=== PATIENT | male | born 1960 | race Caucasian/White ===

== ENCOUNTER 2020-11-28 14:44 | Emergency (ER) | payer MEDICARE, OTHER ==
--- NOTE | 2020-11-28 15:09 | EDM.PDOC ---
ED HPI GENERAL MEDICAL PROBLEM - General Chief Complaint: Neuro Symptoms/Deficits Stated Complaint: CONFUSION Time Seen by Provider: 11/28/20 15:00 Source of Information: Reports: Patient History Limitations: Reports: No Limitations - History of Present Illness INITIAL COMMENTS - FREE TEXT/NARRATIVE: 59-year-old male presents to the ED complaining of confusion and weakness parti cular of his left side. 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 His presentation was that of being confused not able to identify where he gets his prescriptions what prescriptions he is on etc. He states for the last week or more he is appreciated that if he bends over to tie his shoes he lifts towards the left side but he has not yet fallen. He does have intermittent problems with headaches. No nausea or vomiting. No recent closed head injuries. He denies alcohol use. The only medication that is new to him is Metformin which is started 500 mg twice daily about a month ago and he is not checking blood sugars at home. Therefore we do cannot identify what medications he takes per se as he gets them through the mail. Patient was seen as a stroke alert patient through the ED. He was sent to the CT suite by nursing staff. CT head reveals an old infarct within the left periventricular white matter. This causes mild ex vacuo oral enlargement of the left lateral ventricle. Ventricles along with the basal cisterns and sulci over the convexities are also mildly dilated. No other abnormal parenchymal densities are seen. No evidence of intracranial hemorrhage is seen. No midline shift or mass-effect identified. Bone window settings were reviewed. Visualized mastoid sinuses and paranasal sinuses show nothing acute. No acute calvarial finding is appreciated. Of note patient quit smoking after his first CVA 7 years ago but has been smoking again for the last 7 months. Took a while to get this out of him but he is experiencing some dysuria urgency and frequency that started last evening. Onset: Unknown/Unsure (Sounds like left-sided weakness and feeling off balance has been going on for at least a month but seems to be progressively getting worse.) Duration: Week(s):, Getting Worse Location: Reports: Generalized (Seems to be experiencing left-sided weakness listing to the left side at times and feels off balance.) Quality: Reports: Other (Feeling confused and disoriented at times.) Severity: Moderate Improves with: Reports: None Worsens with: Reports: None Context: Denies: Activity, Exercise, Lifting, Sick Contact, Other Associated Symptoms: Reports: Confusion, Cough, cough w sputum (Gross cough.), Headaches, Malaise, Shortness of Breath, Weakness. 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: Other (see below) (Treatment plan about a month ago only new medication is Metformin 500 mg twice daily introduced to his) Headache Pain Score (Numeric/FACES): 3 - Related Data Allergies Allergy/AdvReac Type Severity Reaction Status Date / Time No Known Allergies Allergy Verified 11/28/20 14:57 Home Meds: Home Meds levoFLOXacin [Levaquin] 500 mg PO DAILY #14 tab 11/28/20 [Rx] Past Medical History Cardiovascular History: Reports: Hypertension Gastrointestinal History: Reports: GERD Neurological History: Reports: CVA (Affecting the right side of his body with some expressive aphasia for which he is recovered from very well. He still has some residual right-sided weakness and off balance symptoms at times) Endocrine/Metabolic History: Reports: Diabetes, Type II Social & Family History - Tobacco Use Tobacco Use Status *Q: Current Every Day Tobacco User Years of Tobacco use: 30 Packs/Tins Daily: 0.5 - Recreational Drug Use Recreational Drug Use: No - Living Situation & Occupation Living situation: Reports: Single, with Family Occupation: Unemployed (Apparently lives with his mother.) ED ROS GENERAL - Review of Systems Review Of Systems: See Below Reason Not Obtained: Difficult to obtain review of systems as the patient cannot remem Constitutional: Reports: Malaise, Weakness, Fatigue, Decreased Appetite. Denies: Fever, Chills, Weight Loss HEENT: Reports: Glasses. Denies: Contact Lenses, Dental Pain, Ear Discharge, Ear Pain, Eye Discharge, Eye Pain, Hearing Loss, Nosebleed, Nose Pain, Rhinitis, Sinus Problem, Throat Pain, Throat Swelling, Vertigo Respiratory: Reports: Shortness of Breath, Wheezing, Cough, Sputum ([place] cough in the mornings.). Denies: Pleuritic Chest Pain, Hemoptysis Cardiovascular: Reports: Blood Pressure Problem, Dyspnea on Exertion. Denies: Chest Pain ( Sputum intermittently.), Claudication, Edema, Lightheadedness, Orthopnea, Palpitations Endocrine: Reports: Fatigue GI/Abdominal: Reports: No Symptoms : Reports: Dysuria (Started last evening.), Frequency, Urgency, Other Musculoskeletal: Reports: Joint Pain (Lv x2.) Skin: Reports: No Symptoms ( Knees hips low back and neck at times) Neurological: Reports: Confusion, Headache, Difficulty Walking, Weakness. De nies: Dizziness, Numbness, Paresthesia, Pre-Existing Deficit (Seems to list to the left side intermittently.), Syncope, Tingling, Tremors, Trouble Speaking, Change in Speech Psychiatric: Reports: Anxiety Hematologic/Lymphatic: Reports: No Symptoms Immunologic: Reports: No Symptoms ED EXAM, NEURO - Physical Exam Exam: See Below Exam Limited By: No Limitations General Appearance: Alert, WD/WN, Anxious, Mild Distress, Other (Temperature is 36.4 degrees. Face feels a little warmer than that. Heart rate 106 and sinus respiratory is 26 with O2 sats of 98% room air. He is mildly hyperventilating. BP is 142/81.) Eye Exam: Bilateral Eye: Normal Inspection (No scleral icterus or blepharal pallor.), PERRL Ears: Normal TMs Throat/Mouth: Normal Inspection, Normal Lips, Normal Teeth, Normal Oropharynx, Other (Tongue is mildly dry.) Head Exam: Atraumatic, Normocephalic, Other Neck: Normal Inspection, Supple (No outward signs of any head or facial trauma.), Non-Tender, Full Range of Motion. No: Carotid Bruit, Lymphadenopathy (L), Lymphadenopathy (R) Respiratory/Chest: No Respiratory Distress, Lungs Clear, No Accessory Muscle Use, Wheezing Cardiovascular: Normal Peripheral Pulses, Regular Rate, Rhythm, No Edema, No Gallop, No Murmur, No Rub GI/Abdominal: Normal Bowel Sounds, Soft, Non-Tender, No Organomegaly, No Mass, Pelvis Stable Neurological: Alert, Normal Mood/Affect, Normal Dorsiflexion, CN II-XII Intact, Normal Plantar Flexion, Oriented x 3. No: Normal Gait, Normal Reflexes DTR: 0: Achilles (R), Achilles (L), 1+: Bicep (R), Patella (R), Patella (L), 2+: Bicep (L) Back Exam: Normal Inspection, Full Range of Motion. No: CVA Tenderness (L), CVA Tenderness (R) Extremities: Normal Inspection, Normal Range of Motion, Non-Tender, No Pedal Edema Psychiatric: Normal Affect, Normal Mood Skin Exam: Dry, Intact, Normal Color, No Rash #1 Interpretation EKG Date: 11/28/20 Time: 14:58 Rhythm: NSR Rate (Beats/Min): 98 [place]: Normal P-Wave: Present QRS: Other (RSR prime wave in V2 consider normal variant) ST-T: Normal QT: Normal EKG Interpretation Comments: Essentially normal ECG Course - Vital Signs Last Recorded V/S: Last Vital Signs Temp 36.4 C 11/28/20 14:50 Pulse 95 11/28/20 19:00 Resp 16 11/28/20 19:00 BP 133/70 11/28/20 19:00 Pulse Ox 98 11/28/20 19:00 - Orders/Labs/Meds Labs: Laboratory Tests 11/28/20 11/28/20 11/28/20 Range/Units 14:53 14:57 14:57 WBC 14.05 H (4.23-9.07) K/mm3 RBC 5.44 (4.63-6.08) M/mm3 Hgb 16.0 (13.7-17.5) gm/dl Hct 47.8 (40.1-51.0) % MCV 87.9 (79.0-92.2) fl MCH 29.4 (25.7-32.2) pg MCHC 33.5 (32.2-35.5) g/dl RDW Std Deviation 43.5 (35.1-43.9) fL Plt Count 215 (163-337) K/mm3 MPV 10.2 (9.4-12.3) fl Neut % (Auto) 74.9 H (34.0-67.9) % Lymph % (Auto) 14.7 L (21.8-53.1) % [place] % (Auto) 8.1 (5.3-12.2) % Eos % (Auto) 1.6 (0.8-7.0) Baso % (Auto) 0.5 (0.1-1.2) % Neut # (Auto) 10.52 H (1.78-5.38) K/mm3 Lymph # (Auto) 2.07 (1.32-3.57) K/mm3 [place] # (Auto) 1.14 H (0.30-0.82) K/mm3 Eos # (Auto) 0.22 (0.04-0.54) K/mm3 Baso # (Auto) 0.07 (0.01-0.08) K/mm3 Manual Slide Review Normal smear PT (9.7-12.0) SECONDS INR APTT (21.7-31.4) SECONDS Sodium 137 (136-145) mEq/L Potassium 3.7 (3.5-5.1) mEq/L Chloride 100 (98-107) mEq/L Carbon Dioxide 28 (21-32) mEq/L Anion Gap 12.7 (5-15) BUN 8 (7-18) mg/dL Creatinine 1.3 (0.7-1.3) mg/dL Est Cr Clr Drug Dosing 67.98 mL/min Estimated GFR (MDRD) 57 (>60) mL/min BUN/Creatinine Ratio 6.2 L (14-18) Glucose 209 H (74-106) mg/dL POC Glucose 211 H (70-105) mg/dL Hemoglobin A1c ( - 5.6) % Serum Osmolality 288 (280-300) mosm/kg Lactic Acid (0.4-2.0) mmol/L Calcium 8.7 (8.5-10.1) mg/dL Magnesium 1.6 L (1.8-2.4) mg/dl Total Bilirubin 0.4 (0.2-1.0) mg/dL AST 19 (15-37) U/L ALT 43 (16-63) U/L Alkaline Phosphatase 94 (46-116) U/L Troponin I < 0.017 (0.00-0.056) ng/mL C-Reactive Protein 1.1 H* (<1.0) mg/dL NT-Pro-B Natriuret Pep (0-125) pg/mL Total Protein 7.6 (6.4-8.2) g/dl Albumin 3.8 (3.4-5.0) g/dl Globulin 3.8 gm/dL Albumin/Globulin Ratio 1.0 (1-2) Urine Color (Yellow) Urine Appearance (Clear) Urine pH (5.0-8.0) Ur Specific [place] (1.005-1.030) Urine Protein (Negative) Urine Glucose (UA) (Negative) Urine Ketones (Negative) Urine Occult Blood (Negative) Urine Nitrite (Negative) Urine Bilirubin (Negative) Urine Urobilinogen (0.2-1.0) Ur Leukocyte Esterase (Negative) Urine RBC (0-5) /hpf Urine WBC (0-5) /hpf Ur Squamous Epith Cells (0-5) /hpf Urine Bacteria (FEW) /hpf Urine Mucus (FEW) /hpf Urine Opiates Screen (PCXGFJ=814) Ur Buprenorphine Scrn (CUTOFF=10) Ur Oxycodone Screen (CSB1DH=904) Urine Methadone Screen (TAD1VM=344) Ur Propoxyphene Screen (WGNHWG=642) Ur Barbiturates Screen (SBKRWL=035) Ur Tricyclics Screen (GNPPTD=052) Ur Phencyclidine Scrn (CUTOFF=25) Ur Amphetamine Screen (KXZMXY=924) U Methamphetamines Scrn (RVUJUS=045) U Benzodiazepines Scrn (TWELCL=777) U Cocaine Metab Screen (WPAGTL=010) U Marijuana (THC) Screen (CUTOFF=50) Ethyl Alcohol 0.00 (0.00) gm% 11/28/20 11/28/20 11/28/20 Range/Units 14:57 14:57 14:57 WBC (4.23-9.07) K/mm3 RBC (4.63-6.08) M/mm3 Hgb (13.7-17.5) gm/dl Hct (40.1-51.0) % MCV (79.0-92.2) fl MCH (25.7-32.2) pg MCHC (32.2-35.5) g/dl RDW Std Deviation (35.1-43.9) fL Plt Count (163-337) K/mm3 MPV (9.4-12.3) fl Neut % (Auto) (34.0-67.9) % Lymph % (Auto) (21.8-53.1) % [place] % (Auto) (5.3-12.2) % Eos % (Auto) (0.8-7.0) Baso % (Auto) (0.1-1.2) % Neut # (Auto) (1.78-5.38) K/mm3 Lymph # (Auto) (1.32-3.57) K/mm3 [place] # (Auto) (0.30-0.82) K/mm3 Eos # (Auto) (0.04-0.54) K/mm3 Baso # (Auto) (0.01-0.08) K/mm3 Manual Slide Review PT 10.3 (9.7-12.0) SECONDS INR 0.96 APTT 29.7 (21.7-31.4) SECONDS Sodium (136-145) mEq/L Potassium (3.5-5.1) mEq/L Chloride (98-107) mEq/L Carbon Dioxide (21-32) mEq/L Anion Gap (5-15) BUN (7-18) mg/dL Creatinine (0.7-1.3) mg/dL Est Cr Clr Drug Dosing mL/min Estimated GFR (MDRD) (>60) mL/min BUN/Creatinine Ratio (14-18) Glucose (74-106) mg/dL POC Glucose (70-105) mg/dL Hemoglobin A1c 7.6 H ( - 5.6) % Serum Osmolality (280-300) mosm/kg Lactic Acid (0.4-2.0) mmol/L Calcium (8.5-10.1) mg/dL Magnesium (1.8-2.4) mg/dl Total Bilirubin (0.2-1.0) mg/dL AST (15-37) U/L ALT (16-63) U/L Alkaline Phosphatase (46-116) U/L Troponin I (0.00-0.056) ng/mL C-Reactive Protein (<1.0) mg/dL NT-Pro-B Natriuret Pep 63 (0-125) pg/mL Total Protein (6.4-8.2) g/dl Albumin (3.4-5.0) g/dl Globulin gm/dL Albumin/Globulin Ratio (1-2) Urine Color (Yellow) Urine Appearance (Clear) Urine pH (5.0-8.0) Ur Specific [place] (1.005-1.030) Urine Protein (Negative) Urine Glucose (UA) (Negative) Urine Ketones (Negative) Urine Occult Blood (Negative) Urine Nitrite (Negative) Urine Bilirubin (Negative) Urine Urobilinogen (0.2-1.0) Ur Leukocyte Esterase (Negative) Urine RBC (0-5) /hpf Urine WBC (0-5) /hpf Ur Squamous Epith Cells (0-5) /hpf Urine Bacteria (FEW) /hpf Urine Mucus (FEW) /hpf Urine Opiates Screen (ATUOQS=704) Ur Buprenorphine Scrn (CUTOFF=10) Ur Oxycodone Screen (XZP0RW=399) Urine Methadone Screen (NGZ9LE=067) Ur Propoxyphene Screen (TDTSES=477) Ur Barbiturates Screen (XWQHZA=924) Ur Tricyclics Screen (VEMTEP=462) Ur Phencyclidine Scrn (CUTOFF=25) Ur Amphetamine Screen (ANZEAS=704) U Methamphetamines Scrn (LYUOYA=258) U Benzodiazepines Scrn (HLIXFO=484) U Cocaine Metab Screen (RJYFWB=482) U Marijuana (THC) Screen (CUTOFF=50) Ethyl Alcohol (0.00) gm% 11/28/20 11/28/20 11/28/20 Range/Units 15:05 15:05 15:23 WBC (4.23-9.07) K/mm3 RBC (4.63-6.08) M/mm3 Hgb (13.7-17.5) gm/dl Hct (40.1-51.0) % MCV (79.0-92.2) fl MCH (25.7-32.2) pg MCHC (32.2-35.5) g/dl RDW Std Deviation (35.1-43.9) fL Plt Count (163-337) K/mm3 MPV (9.4-12.3) fl Neut % (Auto) (34.0-67.9) % Lymph % (Auto) (21.8-53.1) % [place] % (Auto) (5.3-12.2) % Eos % (Auto) (0.8-7.0) Baso % (Auto) (0.1-1.2) % Neut # (Auto) (1.78-5.38) K/mm3 Lymph # (Auto) (1.32-3.57) K/mm3 [place] # (Auto) (0.30-0.82) K/mm3 Eos # (Auto) (0.04-0.54) K/mm3 Baso # (Auto) (0.01-0.08) K/mm3 Manual Slide Review PT (9.7-12.0) SECONDS INR APTT (21.7-31.4) SECONDS Sodium (136-145) mEq/L Potassium (3.5-5.1) mEq/L Chloride (98-107) mEq/L Carbon Dioxide (21-32) mEq/L Anion Gap (5-15) BUN (7-18) mg/dL Creatinine (0.7-1.3) mg/dL Est Cr Clr Drug Dosing mL/min Estimated GFR (MDRD) (>60) mL/min BUN/Creatinine Ratio (14-18) Glucose (74-106) mg/dL POC Glucose (70-105) mg/dL Hemoglobin A1c ( - 5.6) % Serum Osmolality (280-300) mosm/kg Lactic Acid 0.9 (0.4-2.0) mmol/L Calcium (8.5-10.1) mg/dL Magnesium (1.8-2.4) mg/dl Total Bilirubin (0.2-1.0) mg/dL AST (15-37) U/L ALT (16-63) U/L Alkaline Phosphatase (46-116) U/L Troponin I (0.00-0.056) ng/mL C-Reactive Protein (<1.0) mg/dL NT-Pro-B Natriuret Pep (0-125) pg/mL Total Protein (6.4-8.2) g/dl Albumin (3.4-5.0) g/dl Globulin gm/dL Albumin/Globulin Ratio (1-2) Urine Color Yellow (Yellow) Urine Appearance Clear (Clear) Urine pH 5.5 (5.0-8.0) Ur Specific [place] 1.025 (1.005-1.030) Urine Protein 1+ H (Negative) Urine Glucose (UA) 2+ H (Negative) Urine Ketones Negative (Negative) Urine Occult Blood 3+ H (Negative) Urine Nitrite Positive H (Negative) Urine Bilirubin Negative (Negative) Urine Urobilinogen 0.2 (0.2-1.0) Ur Leukocyte Esterase 1+ H (Negative) Urine RBC 20-30 H (0-5) /hpf Urine WBC 30-40 H (0-5) /hpf Ur Squamous Epith Cells 0-5 (0-5) /hpf Urine Bacteria Moderate H (FEW) /hpf Urine Mucus Few (FEW) /hpf Urine Opiates Screen Negative (XKRPJZ=581) Ur Buprenorphine Scrn Negative (CUTOFF=10) Ur Oxycodone Screen Negative (YMC6KD=939) Urine Methadone Screen Negative (PKS9BI=737) Ur Propoxyphene Screen Negative (ZYNIHX=255) Ur Barbiturates Screen Negative (MKDKXL=609) Ur Tricyclics Screen Negative (BHARWW=255) Ur Phencyclidine Scrn Negative (CUTOFF=25) Ur Amphetamine Screen Negative (PBEQNV=701) U Methamphetamines Scrn Negative (APHAHX=620) U Benzodiazepines Scrn Negative (CJAHJM=785) U Cocaine Metab Screen Negative (OQNMAK=517) U Marijuana (THC) Screen Negative (CUTOFF=50) Ethyl Alcohol (0.00) gm% Meds: Medications Discontinued Medications Generic Name Dose Route Start Last Admin Trade Name Freq PRN Reason Stop Dose Admin Sodium Chloride 1,000 mls @ 150 mls/hr 11/28/20 15:15 11/28/20 15:19 Normal Saline IV 150 mls/hr ASDIRECTED ALYSSA Administration Ceftriaxone Sodium 2 gm/ 100 mls @ 200 mls/hr 11/28/20 17:33 11/28/20 17:41 Sodium Chloride IV 11/28/20 18:02 200 mls/hr ONETIME ONE Administration Ibuprofen 600 mg 11/28/20 17:33 11/28/20 17:41 Ibuprofen 600 Mg Tab PO 11/28/20 17:34 600 mg ONETIME ONE Administration - Radiology Interpretation Free Text/Narrative:: 59-year-old male presents to the ED for evaluation of possible recurrent stroke. He has had a CVA in the past approximately 7 years ago which created right-si ded hemiparesis and weakness and impaired speech for a period of time. He still feels he is a little weak on the right side but for the most part is recovered. Or lately he feels that he is listing towards the left side and feels off kilter when he walks. He particularly notes this when he tries to tie his shoes if he bends over he will often end up against the wall towards the left side. Intermittent headaches. No nausea vomiting no visual acuity changes. He cannot name any of his medications although he is on a blood pressure pill and was recently started on Metformin 500 mg twice daily for diabetes. He does not check his blood sugars. They never told him that he needed to do so. Neuro exam is otherwise grossly normal his Romberg was positive. He lists towards the right side. ITD detect very subtle weakness on the right side but not on the left. This is on handgrip and flexion at the elbow. [id number] assessment was normal as was rapid alternating movements. No obvious ataxia identified on exam plan repeat CT scan of the head. Chest x-ray routine labs to be done. - Re-Assessments/Exams Free Text/Narrative Re-Assessment/Exam: 11/28/20 16:27 CT head has been completed. Old infarct is seen within the left periventricular white matter. This causes mild ex vacuo enlargement of the left lateral ventricle. Ventricles along with basal cisterns and sulci over the convexities are also mildly prominent. No other abnormal parenchymal densities are noted. No evidence of intracranial hemorrhage is seen. No midline shift or mass-effect is seen. Bone window settings were reviewed. Visualized mastoid sinuses and paranasal sinuses showed nothing acute. No acute calvarial finding is appreciated. Chest x-ray shows heart size and mediastinum to be within normal limits. Lungs are clear with no acute parenchymal changes. No acute osseous findings are identified. 11/28/20 16:53 White count is elevated at 14.05 with 75% neutrophils on the auto differential. Hemoglobin is 16.0 with hematocrit of 47.8. Platelet count normal at 215,000 PT is 10.3 with an INR of 0.96 PTT is 29.7. Sodium 137 potassium of 3.7. Chloride is 100 with a bicarb of 28. Anion gap is 12.7. BUN is 8 with a creatinine of 1.3. GFR is 57. Glucose is elevated at 209 at the bedside it was 211. Hemoglobin A1c is 7.6 slightly elevated. We aim for a glycosylated protein of 7.1. Serum osmolality is low normal at 288. Lactic acid 0.9. Calcium is 8.7 magnesium slightly low at 1.6. Liver function normal troponin I is less than 0.017. C-reactive protein is 1.1. BNP is 63 with a total protein is 7.6 albumin fraction of 3.8. Urinalysis is yellow it shows 1+ proteinuria 2+ glucosuria and 3+ occult blood. It is nitrite positive due to the blood in the urine. There is 1+ leukocyte esterase. Urine drug screen is completely normal. Blood alcohol is 0.00. 11/28/20 17:34 patient is complaining of a headache. He will be given Motrin 600 mg p.o. He is finding it very cold in his room although I did not find it overly chilly. He will be given a warm blanket to keep him warm. He is requesting some water which we did provide. The urinalysis is showing positive leukocyte esterase suggestive of a urinary tract infection most likely from his prostate. I suspect this is what is making him feel ill and throwing him is balance off due to generally not feeling well I will give him Rocephin 2 g IV at this time. 11/28/20 18:08 The micro on the urine is now available and shows 20-30 RBCs per hour per field and 30-40 white blood cells per high-power field with moderate bacteria. Urine culture has been ordered. 11/28/20 18:57 Patient feels much better at this point time. He states even the dysuria is not as bad. Plan will be to discharge him home on Levaquin 500 mg once daily for the next 14 days due to suspect prostatitis. The fact that he has developed diabetes over the last couple of years is also contributing to prostatitis and urinary tract infection. He would be well advised to have a urinalysis completed a week after he finishes his antibiotics. He will continue Motrin 600 mg every 6 hours as needed for fever relief and dysuria. 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: without fci use Diabetes mellitus complication status: with hyperglycemia Qualified Code(s): E11.65 - Type 2 diabetes mellitus with hyperglycemia - Discharge Information *PRESCRIPTION DRUG MONITORING PROGRAM REVIEWED*: Not Applicable *COPY OF PRESCRIPTION DRUG MONITORING REPORT IN PATIENT IRINEO: Not Applicable Prescriptions: levoFLOXacin [Levaquin] 500 mg PO DAILY #14 tab Instructions: Type 2 Diabetes Mellitus, Diagnosis, Adult, Prostatitis Referrals: PCP,None [Primary Care Provider] - Forms: ED Department Discharge Additional Instructions: Evaluation in the emergency room today in regards to generally not feeling well most of the day. You appreciated having some painful urination which we called dysuria as well as urinary frequency and urge to go since last evening but progressively got worse today. You had a very low-grade fever upon arrival in the ED. Your chief complaint was confusion as you felt ill. You felt off balance and offkilter and had some concerns you may have had a recurrent stroke. Repeat CT scan of the brain does not reveal any new stroke. Lab test revealed a mildly elevated white blood cell count compatible with an underlying infection. The urinalysis proved that it was coming from the urine and the prostate gland causing your current illness and infection. You were treated in the emergency room with IV fluids and IV antibiotic Rocephin 2 g to start to bring the infection under control. At the time of discharge he felt improved. Continue Motrin 600 mg every 6 hours as needed for fever relief body ache relief and headache relief as needed for the next day or 2 until the antibiotics become effective. You will need to take antibiotic Levaquin 500 mg once daily for another 14 days starting tomorrow at suppertime. Return to the emergency room if you develop severe chills or shakes or high fever greater than 101.5 degrees. Also if you develop any nausea and vomiting and unable to keep down medication. Blood sugars were 211 in the emergency room today able to go down once your current illness is under control. Suggest follow-up with your personal care physician or primary care provider about a week after you are finished antibiotics to recheck the urine to make sure that action has been completely eradicated. Sepsis Event Note (ED) - Evaluation Sepsis Screening Result: No Definite Risk
[2020-11-28] MEDS ORDERED: Sodium Chloride 0.9% 1,000 ML IV SCH (15:15)
--- NOTE | 2020-11-28 15:40 | CR ---
Chest: Portable view of the chest was obtained. Comparison: No prior chest imaging is available. Heart size and mediastinum are normal. Lungs are clear with no acute parenchymal change. No acute osseous finding is seen. Impression: 1. Nothing acute is seen on portable chest x-ray. Diagnostic code #1
--- NOTE | 2020-11-28 15:41 | CT ---
Head CT Technique: Multiple axial sections through the brain were obtained. Intravenous contrast was not utilized. Reconstructed coronal and sagittal images were obtained. Findings: Old infarct is seen within the left periventricular white matter. This causes mild ex vacuole enlargement of the left lateral ventricle. Ventricles along with basal cisterns and sulci over the convexities are also mildly dilated. No other abnormal parenchymal densities are seen. No evidence of intracranial hemorrhage is seen. No midline shift or mass-effect is seen. Bone window settings were reviewed. Visualized mastoid sinuses and paranasal sinuses show nothing acute. No acute calvarial finding is appreciated. Impression: 1. Old infarct within the left periventricular white matter with ex vacuole enlargement of the left lateral ventricle. 2. Mild senescent change as noted above. 3. No acute intracranial abnormality is appreciated. Diagnostic code #2
[2020-11-28 16:05] LABS: HEMOGLOBIN A1C 7.6 %
[2020-11-28] MEDS ORDERED: cefTRIAXone 2 GM in Sodium Chloride 0.9% 100 ML IV ONE (17:33)
[2020-11-28] MEDS ORDERED: Ibuprofen 600 MG Tab PO ONE (17:33)
== END 2020-11-28 19:10 | disposition home or self-care (01) ==
LOC: JD.ED 14:44
DX: E11.65 Type 2 diabetes mellitus with hyperglycemia (principal); N41.0 Acute prostatitis; N39.0 Urinary tract infection, site not specified; Z86.73 Personal history of transient ischemic attack (TIA), and cerebral infarction without residual deficits; Z72.0 Tobacco use
CPT/HCPCS: 36415; 70450; 71045; 80053; 80306; 80307; 81001; 82962; 83036; 83605; 83735; 83880; 83930; 84484; 85025; 85610; 85730; 86140; 87086; 87088; 87184; 87186; 93005; 96365; 99285; A9270; J0696; J7030

== ENCOUNTER 2021-02-26 23:15 | Emergency (ER) | payer MEDICARE ==
[2021-02-26] MEDS ORDERED: Sodium Chloride 0.9% 10 ML Syringe FLUSH PRN (23:38)
[2021-02-27] MEDS ORDERED: Sodium Chloride 0.9% 1,000 ML IV SCH (00:30)
[2021-02-27] MEDS ORDERED: Iopamidol 755 Mg/ML 100 ML Bottle IVPUSH ONE (00:42)
[2021-02-27] MEDS ORDERED: Sodium Chloride 0.9% 10 ML Syringe FLUSH SCH (00:45)
[2021-02-27] MEDS ORDERED: Sodium Chloride 0.9% 100 ML IV SCH (00:45)
--- NOTE | 2021-02-27 02:10 | EDM.PDOC ---
ED HPI GENERAL MEDICAL PROBLEM - General Chief Complaint: Chest Pain Stated Complaint: SHORTNESS OF BREATH Time Seen by Provider: 02/26/21 23:31 Source of Information: Reports: Patient, RN Notes Reviewed - History of Present Illness INITIAL COMMENTS - FREE TEXT/NARRATIVE: 60 yr old male with onset of L upper abd and L chest pain a short time ago, now somewhat better but discomfort still present L chest. This all started about 3 hrs [employer]. Does not radiate to either arm. He does not currently feel short of breath. Pain very mildly worse with deep breathing. Hx of a stroke many yrs ago. No known hx of heart disease. No cough, fever or chills. Mid-Sternal Chest Pain Score (Numeric/FACES): 8 Left Chest Pain Score (Numeric/FACES): 8 - Related Data Allergies Allergy/AdvReac Type Severity Reaction Status Date / Time No Known Allergies Allergy Verified 11/28/20 14:57 Home Meds: Home Meds lisinopriL [Lisinopril] 20 mg PO DAILY 02/26/21 [History] Rivaroxaban [Xarelto] 15 mg PO BID #42 tab 02/27/21 [Rx] metFORMIN [Glucophage XR] 500 mg PO BID 02/27/21 [History] Past Medical History Cardiovascular History: Reports: Hypertension Respiratory History: Reports: Other (See Below) Other Respiratory History: pleuresy Gastrointestinal History: Reports: GERD Neurological History: Reports: CVA Endocrine/Metabolic History: Reports: Diabetes, Type II Social & Family History - Family History Family Medical History: No Pertinent Family History - Tobacco Use Tobacco Use Status *Q: Current Every Day Tobacco User Years of Tobacco use: 30 Packs/Tins Daily: 1 Used Tobacco, but Quit: No Second Hand Smoke Exposure: No - Caffeine Use Caffeine Use: Reports: Coffee - Recreational Drug Use Recreational Drug Use: No - Living Situation & Occupation Living situation: Reports: Single, with Family Occupation: Unemployed (Apparently lives with his mother.) ED ROS GENERAL - Review of Systems Review Of Systems: See Below Constitutional: Denies: Fever, Chills, Diaphoresis HEENT: Reports: No Symptoms Respiratory: Denies: Shortness of Breath, Cough Cardiovascular: Reports: Chest Pain GI/Abdominal: Reports: Abdominal Pain (gone) Musculoskeletal: Denies: Shoulder Pain, Arm Pain, Back Pain Skin: Reports: No Symptoms Neurological: Reports: No Symptoms ED EXAM, NEURO - Physical Exam Exam: See Below General Appearance: Alert, No Apparent Distress Throat/Mouth: Normal Inspection Head Exam: Atraumatic Neck: Supple Respiratory/Chest: No Respiratory Distress, Lungs Clear, Normal Breath Sounds. No: Rales, Rhonchi, Wheezing Cardiovascular: Regular Rate, Rhythm GI/Abdominal: Non-Tender Neurological: Alert, No Motor/Sensory Deficits Extremities: Other (R leg very mildly more swollen than the left). No: Leg Pain, Increased Warmth, Redness #1 Interpretation EKG Date: 02/27/21 Rhythm: NSR Rate (Beats/Min): 79 [place]: Normal P-Wave: Present QRS: Normal ST-T: Normal QT: Normal Course - Vital Signs Last Recorded V/S: Last Vital Signs Temp 98.5 F 02/26/21 23:47 Pulse 88 02/26/21 23:47 Resp 24 H 02/26/21 23:47 BP 134/79 02/26/21 23:47 Pulse Ox 94 L 02/26/21 23:47 - Orders/Labs/Meds Orders: Active Orders 24 hr Category Date Time Status Chest 1V Frontal [CR] Stat Exams 02/26/21 23:38 Taken Chest PE [Ang Chest] [CT] Stat Exams 02/27/21 00:29 Taken Peripheral IV Insertion Adult [OM.PC] Stat Oth 02/26/21 23:39 Ordered Labs: Laboratory Tests 02/26/21 02/26/21 02/26/21 Range/Units 23:49 23:49 23:49 WBC 10.96 H (4.23-9.07) K/mm3 RBC 5.38 (4.63-6.08) M/mm3 Hgb 15.6 (13.7-17.5) gm/dl Hct 46.1 (40.1-51.0) % MCV 85.7 (79.0-92.2) fl MCH 29.0 (25.7-32.2) pg MCHC 33.8 (32.2-35.5) g/dl RDW Std Deviation 46.1 H (35.1-43.9) fL Plt Count 230 (163-337) K/mm3 MPV 9.6 (9.4-12.3) fl Neut % (Auto) 65.0 (34.0-67.9) % Lymph % (Auto) 20.5 L (21.8-53.1) % [place] % (Auto) 11.4 (5.3-12.2) % Eos % (Auto) 2.2 (0.8-7.0) Baso % (Auto) 0.6 (0.1-1.2) % Neut # (Auto) 7.12 H (1.78-5.38) K/mm3 Lymph # (Auto) 2.25 (1.32-3.57) K/mm3 [place] # (Auto) 1.25 H (0.30-0.82) K/mm3 Eos # (Auto) 0.24 (0.04-0.54) K/mm3 Baso # (Auto) 0.07 (0.01-0.08) K/mm3 Manual Slide Review Normal smear D-Dimer, Quantitative 2.65 H (0.19-0.50) mg/L Sodium 139 (136-145) mEq/L Potassium 3.8 (3.5-5.1) mEq/L Chloride 103 (98-107) mEq/L Carbon Dioxide 23 (21-32) mEq/L Anion Gap 16.8 H (5-15) BUN 7 (7-18) mg/dL Creatinine 1.2 (0.7-1.3) mg/dL Est Cr Clr Drug Dosing 74.91 mL/min Estimated GFR (MDRD) > 60 (>60) mL/min BUN/Creatinine Ratio 5.8 L (14-18) Glucose 195 H (70-99) mg/dL Calcium 8.6 (8.5-10.1) mg/dL Total Bilirubin 0.4 (0.2-1.0) mg/dL AST 20 (15-37) U/L ALT 43 (16-63) U/L Alkaline Phosphatase 98 (46-116) U/L Troponin I < 0.017 (0.00-0.056) ng/mL Total Protein 7.1 (6.4-8.2) g/dl Albumin 3.5 (3.4-5.0) g/dl Globulin 3.6 gm/dL Albumin/Globulin Ratio 1.0 (1-2) Ethyl Alcohol 0.00 (0.00) gm% Meds: Medications Discontinued Medications Generic Name Dose Route Start Last Admin Trade Name Freq PRN Reason Stop Dose Admin Sodium Chloride 1,000 mls @ 999 mls/hr 02/27/21 00:30 Normal Saline IV ONETIME ALYSSA Sodium Chloride 100 mls @ 60 drops/min 02/27/21 00:45 02/27/21 01:23 Normal Saline IV 60 drops/min ASDIRECTED ALYSSA Administration Iopamidol 100 ml 02/27/21 00:42 02/27/21 01:23 Iopamidol 755 Mg/Ml 100 Ml Bottle IVPUSH 02/27/21 00:43 100 ml ONETIME ONE Administration Rivaroxaban 15 mg 02/27/21 02:38 Rivaroxaban 15 Mg Tab PO 02/27/21 02:39 ONETIME ONE Sodium Chloride 10 ml 02/26/21 23:38 02/27/21 00:03 Sodium Chloride 0.9% 10 Ml Syringe FLUSH 10 ml ASDIRECTED PRN Administration Keep Vein Open Sodium Chloride 10 ml 02/27/21 00:45 02/27/21 01:24 Sodium Chloride 0.9% 10 Ml Syringe FLUSH 10 ml BOLUS ALYSSA Administration - Re-Assessments/Exams Free Text/Narrative Re-Assessment/Exam: 02/27/21 03:56 D Dimer did come back elevated at 2.5. CXR nl. Trop, other labs normal. CT Angio was done that did reveal what was described by Radiologist a filling defect in one pulmonary artery branch L lower lobe. This finding was discussed at length with patient including various options for treatment. He has had no recent surgery. He states he did just complete a road trip out to [place] and back just over a week ago. At time of recheck about an hour ago he was feeling better, chest pain completely gone. He continued to not be short of breath. Sats 97 to 98 % at time of my reexam. Heart rate in the 70's and 80's. I have offered possibility of hospital admission but also explained that he is a patient that will be expected to do well at home starting anticoagulation therapy at this time. He would like to do out patient xarelto if not cost prohibitive. 15 mg xarelto ordered. Prescription to continue 15 mg bid written. I was informed shortly after this was all done that patient had pulled his IV and left without talking to any of our staff. One of our nurses called him but he did not answer. I than called him at about 03:30 and he stated he would come take the initial dose of xarelto and mixing picker tender his prescription. I have checked with staff and he did come get the xarelto, mixing picker tender his prescription to be filled this morning and get appropriately signed out. Departure - Departure Time of Disposition: 02:42 Disposition: Home, Self-Care 01 Condition: Fair Clinical Impression: Pulmonary embolism Qualifiers: Chronicity: acute Acute cor pulmonale presence: without acute cor pulmonale - Discharge Information Prescriptions: Rivaroxaban [Xarelto] 15 mg PO BID #42 tab Instructions: Pulmonary Embolism Referrals: PCP,None [Primary Care Provider] - Forms: ED Department Discharge Additional Instructions: Xarelto 15 mg twice daily for 21 days. Because your first dose has been given at around 2:30 AM today it will be best to take 3 doses. Take your next dose at around 11 AM today and the evening dose around 10 PM. See one of our [facility] physicians in about 2 ot 3 days for recheck, call [phone] for appointment. Return to ED at any time for severe chest pain, dizziness or difficulty breathing or otherwise as needed. Drink plenty of water to maintain hydration. Sepsis Event Note (ED) - Evaluation Sepsis Screening Result: No Definite Risk - Focused Exam Vital Signs: Vital Signs Temp Pulse Resp BP Pulse Ox 02/26/21 23:47 98.5 F 88 24 H 134/79 94 L - My Orders Last 24 Hours: My Active Orders 02/26/21 23:38 Chest 1V Frontal [CR] Stat 02/26/21 23:39 Peripheral IV Insertion Adult [OM.PC] Stat 02/27/21 00:29 Chest PE [Ang Chest] [CT] Stat - Assessment/Plan Last 24 Hours: My Active Orders 02/26/21 23:38 Chest 1V Frontal [CR] Stat 02/26/21 23:39 Peripheral IV Insertion Adult [OM.PC] Stat 02/27/21 00:29 Chest PE [Ang Chest] [CT] Stat
[2021-02-27] MEDS ORDERED: Rivaroxaban 15 MG Tab PO ONE (02:38)
--- NOTE | 2021-02-27 07:09 | CR ---
Chest: Portable view of the chest was obtained. Comparison: Prior chest x-ray of 11/28/20. Slight density is noted within the left lung base. This is most likely due to an area of atelectasis or small area of pneumonia. Lungs otherwise are clear. Heart size and need mediastinum are within normal limits. Bony structures are without acute abnormality. Impression: 1. Area of atelectasis or small area of pneumonia with nothing acute otherwise seen on portable chest x-ray. Diagnostic code #3
--- NOTE | 2021-02-27 07:27 | CT ---
CT chest Technique: Multiple axial sections through the chest were obtained. Intravenous contrast was utilized. Study has been performed as a pulmonary angiogram protocol. Comparison: No prior chest CT study, previous chest x-ray performed earlier on the same day is available. Findings: Filling defect is seen within the subsegmental branch of the left lower lung compatible with pulmonary embolism. Minimal left-sided pleural effusion is seen. No other pulmonary emboli are seen. Slightly prominent lymph node is noted within the left hilar region most likely inflammatory in etiology and measuring 2.0 cm. Thoracic aorta shows no aneurysm. No mediastinal adenopathy is seen. No pericardial thickening is seen. Slight fatty infiltration is noted within the liver. Other visualized upper abdominal structures show nothing acute. Patchy area of increased density is seen within the left lung base. Given the small amount of pulmonary embolism this is most likely due to atelectasis. Minimal findings are seen within the lingula. Lungs otherwise are clear. Impression: 1. Mild amount of subsegmental pulmonary emboli within the left lower lung. 2. Minimal pleural effusion within the left lung base. Patchy areas of increased density within the left lung base as well as lingula. Given the pulmonary embolism, this is most likely due to atelectasis. 3. Fatty infiltration within the liver. 4. No other acute abnormality is appreciated. Diagnostic code #5 I agree with preliminary report from [facility], finalized on 02/27/21, 2:57 AM CDT, code 1
== END 2021-02-27 03:00 | disposition home or self-care (01) ==
LOC: JD.ED 23:15
DX: I26.99 Other pulmonary embolism without acute cor pulmonale (principal); I10 Essential (primary) hypertension; E11.9 Type 2 diabetes mellitus without complications; Z79.899 Other long term (current) drug therapy; Z72.0 Tobacco use; Z79.01 Long term (current) use of anticoagulants; Z79.84 Long term (current) use of oral hypoglycemic drugs
CPT/HCPCS: 36415; 71045; 71275; 80053; 80307; 84484; 85025; 85379; 93005; 99285; A9270; Q9967; 93010; 99284

== ENCOUNTER 2021-02-28 17:06 | Emergency (ER) | payer MEDICARE ==
--- NOTE | 2021-02-28 18:25 | EDM.PDOC ---
ED HPI GENERAL MEDICAL PROBLEM - General Chief Complaint: Chest Pain Stated Complaint: SOB AND LT SIDE PAIN NOT GETTING BETTER Time Seen by Provider: 02/28/21 17:26 Source of Information: Reports: Patient, RN Notes Reviewed History Limitations: Reports: No Limitations - History of Present Illness INITIAL COMMENTS - FREE TEXT/NARRATIVE: Patient is a 60-year-old male who presents to the ER for ongoing left-sided chest/side pain, shortness of breath and needing a different prescription for anticoagulants due to his recent PE. The patient was diagnosed with a pulmonary embolus in this ER roughly 2 nights ago, given a prescription for Xarelto and when he went to fill it, he notes that it was too expensive so he was not able to fill the medication. States he has been using aspirin at home, for a bridge however he is still having some pleuritic chest pain, and some associated shortness of breath. Patient denies any other sick-like symptoms, fever/chills, cough/shortness of breath, nausea/vomiting/diarrhea. He did try to go to the walk-in clinic for ongoing management to see if he could get the prescription for Coumadin but they deferred him here to the ER. Left Thoracic Pain Score (Numeric/FACES): 5 - Related Data Allergies Allergy/AdvReac Type Severity Reaction Status Date / Time No Known Allergies Allergy Verified 02/28/21 17:20 Home Meds: Home Meds lisinopriL [Lisinopril] 20 mg PO DAILY 02/26/21 [History] Rivaroxaban [Xarelto] 15 mg PO BID #42 tab 02/27/21 [Rx] metFORMIN [Glucophage XR] 500 mg PO BID 02/27/21 [History] Enoxaparin [Lovenox] 100 mg SQ BID 7 Days #14 ml 02/28/21 [Rx] Warfarin [Coumadin] 5 mg PO DAILY #30 tablet 02/28/21 [Rx] Past Medical History Cardiovascular History: Reports: Hypertension Respiratory History: Reports: PE, Other (See Below) Other Respiratory History: pleuresy Gastrointestinal History: Reports: GERD Neurological History: Reports: CVA Endocrine/Metabolic History: Reports: Diabetes, Type II Social & Family History - Family History Family Medical History: No Pertinent Family History - Tobacco Use Tobacco Use Status *Q: Current Every Day Tobacco User Years of Tobacco use: 10 Packs/Tins Daily: 0.5 - Caffeine Use Caffeine Use: Reports: None - Recreational Drug Use Recreational Drug Use: No - Living Situation & Occupation Living situation: Reports: Single, with Family Occupation: Unemployed (Apparently lives with his mother.) ED ROS GENERAL - Review of Systems Review Of Systems: Comprehensive ROS is negative, except as noted in HPI. ED EXAM, GENERAL - Physical Exam Exam: See Below Exam Limited By: No Limitations General Appearance: Alert, WD/WN, No Apparent Distress Respiratory/Chest: No Respiratory Distress, Lungs Clear, Normal Breath Sounds, No Accessory Muscle Use, Chest Non-Tender Cardiovascular: Normal Peripheral Pulses, Regular Rate, Rhythm, No Edema Peripheral Pulses: 2+: Radial (L), Radial (R) Extremities: Normal Inspection, Normal Capillary Refill Neurological: Alert, Oriented, Normal Cognition, No Motor/Sensory Deficits Psychiatric: Normal Affect, Normal Mood Skin Exam: Warm, Dry, Intact, Normal Color, No Rash Course - Vital Signs Last Recorded V/S: Last Vital Signs Temp 96.9 F 02/28/21 17:17 Pulse 95 02/28/21 17:17 Resp 16 02/28/21 17:17 BP 119/74 02/28/21 17:17 Pulse Ox 95 02/28/21 17:17 - Re-Assessments/Exams Free Text/Narrative Re-Assessment/Exam: 02/28/21 18:27 Patient presents to the ER for the evaluation of his pleuritic chest pain, and need to be on warfarin/Lovenox. I did spend quite a bit of time on the phone dealing with Ángel maddox, to see if he could get this prescription a little bit cheaper, and I did enroll him for a savings plan program however this will take some time to fill so I did order the Coumadin and Lovenox for body weight dosing, and have sent to the [place] pharmacy and [facility] for filling. Departure - Departure Time of Disposition: 18:20 Disposition: Home, Self-Care 01 Condition: Good Clinical Impression: Pleuritic chest pain Pulmonary embolus Qualifiers: Pulmonary embolism type: other Chronicity: acute Acute cor pulmonale presence: unspecified Qualified Code(s): I26.99 - Other pulmonary embolism without acute cor pulmonale Prescriptions: Warfarin [Coumadin] 5 mg PO DAILY #30 tablet Enoxaparin [Lovenox] 100 mg SQ BID 7 Days #14 ml Referrals: Alessandro Briggs MD [Ordering Only Provider] - 1 Week (f/u for anticoagulation d/t recent PE, and xarelto pricing; pt has been signed up for [employer] for insurance purposes to help with cost - did not have a PCP, needed to have one selected.) Additional Instructions: You were evaluated in this ER today for your ongoing management of your pulmonary embolus. I did spend quite a bit of time on the phone with the folks that produce Xarelto, and you have been enrolled in a discount program called [employer] however this may take some time to get the medication to you, you will be called for verification of this. If you do not hear anything regarding this program within the next 3 days, there were 2 numbers that were given to me free to call, , or for ongoing prescription med help. You may only have to pay roughly $85 for 30-day supply if you qualify for these programs For today's purposes a prescription for warfarin and Lovenox has been provided on your behalf to the [place] pharmacy located in the [employer] store, however the Lovenox needed may be somewhat expensive as well due to your Medicare health plan. Apparently you have a fairly high deductible health plan from what I am formulating. I did try to give you the least amount of prescription possible to help defer your out of pocket cost. Please fill the prescription for the Coumadin at least, so you are getting some sort anticoagulation until this Xarelto issue can be taken care of. For today's purposes, a primary care provider had to be selected for you and Dr. Briggs was selected. You should call [phone], and obtain an appoint with him within the next week for ongoing management, so he can take care of your general health and refill prescriptions for you. Do not hesitate to return to the ER at any time if your symptoms change or worsen. Sepsis Event Note (ED) - Evaluation Sepsis Screening Result: No Definite Risk - Focused Exam Vital Signs: Vital Signs Temp Pulse Resp BP Pulse Ox 02/28/21 17:17 96.9 F 95 16 119/74 95
== END 2021-02-28 18:40 | disposition home or self-care (01) ==
LOC: JD.ED 17:06
DX: I26.99 Other pulmonary embolism without acute cor pulmonale (principal); I10 Essential (primary) hypertension; E11.9 Type 2 diabetes mellitus without complications; Z72.0 Tobacco use; Z79.01 Long term (current) use of anticoagulants; Z79.84 Long term (current) use of oral hypoglycemic drugs; Z79.899 Other long term (current) drug therapy
CPT/HCPCS: 99283

== ENCOUNTER 2022-05-04 15:59 | Emergency (ER) | payer MEDICARE ==
[2022-05-04] MEDS ORDERED: Metoclopramide 10 MG/2 ML SDV IVPUSH ONE (16:43)
[2022-05-04] MEDS ORDERED: Acetaminophen 325 MG Tab PO ONE (16:43)
[2022-05-04] MEDS ORDERED: Dextrose 5%-0.9% NaCl 1,000 ML IV SCH (16:45)
[2022-05-04 18:11] LABS: HEMOGLOBIN A1C 8.1 %
[2022-05-04] MEDS ORDERED: Iopamidol 755 MG/ML 50 ML Bottle IVPUSH ONE (19:19)
== END 2022-05-04 19:43 | disposition left against medical advice (07) ==
LOC: JD.ED 15:59
DX: J20.8 Acute bronchitis due to other specified organisms (principal); N40.1 Benign prostatic hyperplasia with lower urinary tract symptoms; E87.2 Acidosis; R79.1 Abnormal coagulation profile; I10 Essential (primary) hypertension; E11.9 Type 2 diabetes mellitus without complications; F17.210 Nicotine dependence, cigarettes, uncomplicated; Z88.8 Allergy status to other drugs, medicaments and biological substances; Z79.84 Long term (current) use of oral hypoglycemic drugs; Z79.01 Long term (current) use of anticoagulants
CPT/HCPCS: 36415; 51798; 71045; 71275; 80053; 81001; 82553; 83036; 83605; 83690; 83735; 83880; 85025; 85379; 85610; 85730; 86140; 87040; 96361; 96374; 99284; A9270; G0103; J2765; J7042; Q9967

== ENCOUNTER 2024-11-14 19:18 | Emergency (ER) | payer MEDICARE ==
[2024-11-14] MEDS ORDERED: Ketorolac 30 MG/ML SDV IM ONE (19:45)
[2024-11-14] MEDS: Penicillin V Potassium 500 MG Tab PO ONE (19:57)
[2024-11-14] MEDS: Acetaminophen 325 MG Tab PO ONE (20:06)
== END 2024-11-14 20:15 | disposition home or self-care (01) ==
LOC: JD.ED 19:18
DX: K02.9 Dental caries, unspecified (principal); K08.89 Other specified disorders of teeth and supporting structures; I10 Essential (primary) hypertension; E11.9 Type 2 diabetes mellitus without complications; Z79.899 Other long term (current) drug therapy; Z79.84 Long term (current) use of oral hypoglycemic drugs; Z79.01 Long term (current) use of anticoagulants
CPT/HCPCS: 99283; A9270

== ENCOUNTER 2024-11-28 11:22 | Emergency (ER) | payer MEDICARE ==
[2024-11-28] MEDS: Ketorolac 60 MG/2 ML SDV IM ONE (12:58)
== END 2024-11-28 13:00 | disposition home or self-care (01) ==
LOC: JD.ED 11:22
DX: K02.9 Dental caries, unspecified (principal); I10 Essential (primary) hypertension; E11.9 Type 2 diabetes mellitus without complications; F17.210 Nicotine dependence, cigarettes, uncomplicated; Z79.899 Other long term (current) drug therapy
CPT/HCPCS: 96372; 99283; J1885

== ENCOUNTER 2024-12-04 13:07 | Emergency (ER) | payer MEDICARE ==
[2024-12-04 13:46] LABS: BASOPHILS ABSOLUTE AUTO 0.1 K/mm3 (0.0-0.2); BASOPHILS PERCENT AUTO 0.9 % (0.0-1.0); EOSINOPHILS ABSOLUTE AUTO 0.2 K/mm3 (0.0-0.4); EOSINOPHILS PERCENT AUTO 1.8 % (0.0-6.0); HEMATOCRIT 51.8 % (42.0-52.0); HEMOGLOBIN 17.8 gm/dl (14.0-18.0); IMMATURE GRAN ABSOLUTE AUTO 0.04 K/mm3 (0.00-0.05); IMMATURE GRAN PERCENT AUTO 0.3 % (0.0-0.4); LYMPHOCYTES ABSOLUTE AUTO 2.3 K/mm3 (1.0-4.8); LYMPHOCYTES PERCENT AUTO 20.1 % (24.0-44.0); MEAN CORPUSCULAR HEMOGLOBIN 28.8 pg (28.0-32.0); MEAN CORPUSCULAR HGB CONC 34.4 g/dl (32.0-36.0); MEAN CORPUSCULAR VOLUME 83.7 fl (83.0-99.0); MEAN PLATELET VOLUME 9.7 fl (9.4-12.4); MONOCYTES ABSOLUTE AUTO 0.6 K/mm3 (0.0-0.8); MONOCYTES PERCENT AUTO 5.4 % (0.0-8.0); NEUTROPHILS ABSOLUTE AUTO 8.3 K/mm3 (1.8-7.7); NEUTROPHILS PERCENT AUTO 71.5 % (41.0-71.0); PLATELET COUNT,PLT 226 K/mm3 (150-400); RED BLOOD CELL COUNT 6.19 M/mm3 (4.52-5.90); WHITE BLOOD CELL COUNT,WBC 11.59 K/mm3 (3.9-11.3)
[2024-12-04] MEDS: Sodium Chloride 0.9% 10 ML Syringe FLUSH ONE (14:06)
[2024-12-04] MEDS: Iopamidol 612 MG/ML 100 ML Bottle IVPUSH ONE (14:06)
[2024-12-04] MEDS: Sodium Chloride 0.9% 1,000 ML IV ONE (14:13)
[2024-12-04 14:22] LABS: APPEARANCE,URINE CLEAR (Clear); BILIRUBIN,URINE NEGATIVE (Negative); COLOR,URINE YELLOW (Yellow); GLUCOSE,URINE TRACE (Negative); KETONES,URINE NEGATIVE (Negative); LEUKOCYTE ESTERASE,URINE NEGATIVE (Negative); NITRITE,URINE NEGATIVE (Negative); OCCULT BLOOD,URINE NEGATIVE (Negative); PROTEIN,URINE NEGATIVE (Negative); UROBILINOGEN,URINE 0.2 (0.2-1.0)
[2024-12-04 14:23] LABS: ALBUMIN 3.8 g/dl (3.4-5.0); BILIRUBIN TOTAL 0.6 mg/dL (0.2-1.0); CALCIUM 9.2 mg/dL (8.5-10.1); EST CRCL DRUG DOSING (CG) 84.07 mL/min; PROTEIN TOTAL,TP 7.5 g/dl (6.4-8.2)
[2024-12-04] MEDS: Tamsulosin 0.4 MG Cap.ER PO ONE (16:19)
== END 2024-12-04 16:25 | disposition home or self-care (01) ==
LOC: JD.ED 13:07
DX: K59.00 Constipation, unspecified (principal); I10 Essential (primary) hypertension; E11.9 Type 2 diabetes mellitus without complications; F17.210 Nicotine dependence, cigarettes, uncomplicated; Z79.899 Other long term (current) drug therapy; Z86.73 Personal history of transient ischemic attack (TIA), and cerebral infarction without residual deficits
CPT/HCPCS: 36415; 74177; 80053; 81003; 85025; 96360; 96361; 99284; A9270; C1758; J7030; Q9967